=== PATIENT | female | born 1995 | race Asian ===

== ENCOUNTER 2021-11-15 10:34 | Emergency (ER) | payer BC ==
[~2021-11-15] VITALS: Ht 170.2 cm; Wt 84.4 kg
[2021-11-15 10:38] VITALS: BP 115/72
--- NOTE | 2021-11-15 10:42 | NUR ---
Patient ambulated to bed 03 with steady/even gait.
--- NOTE | 2021-11-15 10:45 | NUR ---
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 Patient A&Ox4, ambulatory states 2 episode vomiting yesterday. Pt states "I think it may be food poisoning." Denies abdominal pain at this stating intermittent pressure. No allevating or aggrevating factors. Denies diarrhea, constipation, chest pain, dysuria, fever, chills, sick household members. No meds prior to arrival. Abd soft/round/nontender. Bed locked in lowest position, side rails x 1. PMH/Sx/Meds: Denies NKDA
[2021-11-15] MEDS ORDERED: ONDANSETRON 4 MG ODT PO ONE (11:15)
--- NOTE | 2021-11-15 11:19 | NUR ---
Dr. Lo is evaluating pt at bedside
[2021-11-15] MEDS ORDERED: ACETAMINOPHEN 325 MG TAB PO ONE (11:40)
[2021-11-15] MEDS ORDERED: ONDA-188 PO (12:02)
--- NOTE | 2021-11-15 12:10 | NUR ---
+ relief; denies pain and nausea. All pt needs met.
--- NOTE | 2021-11-15 12:11 | NUR ---
Patient discharged with v/s stable. Written and verbal after care instructions given and explained for Vomiting. Work note provided. Patient alert, oriented and verbalized understanding of instructions. Ambulatory with steady gait. All questions addressed prior to discharge. ID band removed. Patient advised to follow up with PMD. Rx of Zofran ODT given. Patient educated on indication of medication including possible reaction and side effects. Opportunity to ask questions provided and answered.
== END 2021-11-15 12:11 | disposition home or self-care (01) ==
LOC: MED 10:34
DX: R11.2 Nausea with vomiting, unspecified (principal); R10.11 Right upper quadrant pain; R51.9 Headache, unspecified; M79.10 Myalgia, unspecified site; F17.210 Nicotine dependence, cigarettes, uncomplicated
CPT/HCPCS: 81002; 81025; 99283; Q0162